=== PATIENT | female | born 1985 | race Caucasian/White ===

== ENCOUNTER 2020-07-03 12:24 | Emergency (ER) | payer OTHER ==
[~2020-07-03] VITALS: Ht 165.1 cm; Wt 111.0 kg
[2020-07-03 12:24] VITALS: BP 142/93
[2020-07-03] MEDS ORDERED: DEXAMETHASONE 4 MG TABLET PO ONE (12:45)
[2020-07-03] MEDS ORDERED: ONDANSETRON ODT 4 MG TAB.RAPDIS PO ONE ×3 (12:45→13:15)
[2020-07-03] MEDS ORDERED: diphenhydrAMINE 50 MG/ML VIAL IVP ONE (13:00)
[2020-07-03] MEDS ORDERED: DEXAMETHASONE SOD PHOS 10 MG/ML VIAL. IM ONE (13:00)
[2020-07-03] MEDS ORDERED: diphenhydrAMINE 50 MG/ML VIAL IM ONE (13:00)
[2020-07-03] MEDS ORDERED: DEXAMETHASONE SOD PHOS 10 MG/ML VIAL. IVP ONE (13:00)
[2020-07-03] MEDS ORDERED: IV NORMAL SALINE 1,000ML 1,000 ML IV ONE (13:00)
[2020-07-03] MEDS ORDERED: FAMOTIDINE 20 MG/2 ML VIAL IVP ONE (13:00)
[2020-07-03] MEDS ORDERED: DEXAMETHASONE SOD PHOS 10 MG/ML VIAL. IV ONE (13:00)
[2020-07-03] MEDS ORDERED: FAMOTIDINE 20 MG TABLET PO ONE (13:00)
[2020-07-03] MEDS ORDERED: EPIN0.3A3 IM (14:07)
[2020-07-03] MEDS ORDERED: DIPH25TA26 PO (14:07)
[2020-07-03] MEDS ORDERED: ONDA4TAB12 PO (14:07)
--- NOTE | 2020-07-03 14:07 | PHYS DOC ---
General Adult EDM: Chief Complaint: ALLERGIC REACTION HPI: HPI: 35-year-old female past medical history of hypertension, iron deficiency anemia and prediabetes, presents the ED from urgent care, with complaints of pruritic rash over her chest, back and all 4 extremities that started 30 minutes just prior to arrival. Patient states she was cleaning out cat cages when her sxs started-has been doing this "for years, I have a cat.". C/o cough with vomiting, states she feels faint. Reports her family members have a history of severe allergic reactions but she personally has never had similar rash, allergic reaction, anaphylaxis or angioedema. Reports her last rash was when she was a child and given penicillin. 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 No h/o asthma. H/o knee swelling after receiving a "cortisone" injection - no associated rash/angioedema/difficulties breathing. Denies any new foods/lotions/perfumes/detergents/medications. Review of Systems: Review of Systems: Constitutional: Denies fever or chills Eyes: Denies change in visual acuity HENT: Denies nasal congestion or sore throat or neck fullness or swelling /voice changes, drooling/difficulties controlling secretions Respiratory: Denies cough or shortness of breath or dyspnea Cardiovascular: Denies chest pain or edema GI: Denies abdominal pain, bloody stools or diarrhea : Denies dysuria Musculoskeletal: Denies back pain or joint pain Integument: Denies diaphoresis Neurologic: Denies headache, focal weakness or sensory changes Endocrine: Denies polyuria or polydipsia Lymphatic: Denies swollen glands Psychiatric: Denies depression or anxiety Current Medications: Current Meds: Current Medications Medications (Trade) Dose Ordered Sig/Champ Start Time Stop Time Status Last Admin Dose Admin Dexamethasone (Decadron) 10 mg 1X ONCE 07/03/20 12:45 07/03/20 12:55 DC Dexamethasone Sodium Phosphate (Decadron) 10 mg 1X ONCE 07/03/20 13:00 07/03/20 13:01 UNV Diphenhydramine HCl (Benadryl) 50 mg 1X ONCE 07/03/20 13:00 07/03/20 13:22 DC Famotidine (Pepcid Vial) 20 mg 1X ONCE 07/03/20 13:00 07/03/20 13:07 DC 07/03/20 13:17 20 MG Famotidine (Pepcid) 20 mg 1X ONCE 07/03/20 13:00 07/03/20 12:58 DC Ondansetron HCl (Zofran Odt) 4 mg 1X ONCE 07/03/20 13:15 07/03/20 13:22 DC 07/03/20 13:18 4 MG Sodium Chloride 1,000 ml @ 1,000 mls/hr 1X ONCE 07/03/20 13:00 07/03/20 13:59 DC 07/03/20 13:17 1,000 MLS/HR Allergies: Allergies: Allergies Coded Allergies Type Severity Reaction Last Updated Verified Penicillins Allergy Unknown 07/03/20 Yes cortisone Allergy Unknown 07/03/20 Yes Physical Exam: PE: Constitutional: Well developed, well nourished, no acute distress, non-toxic appearance. HENT: Normocephalic, atraumatic, Mallampati 1, oropharynx patent, clear speech, controlling secretions, Eyes: EOMI, conjunctiva normal, no discharge. Neck: Normal range of motion, supple, no neck stiffness Cardiovascular: S1/2 present, regular rhythm Lungs & Thorax: Speaking in full sentences, bilateral equal chest rise, no tachypnea or increased work of breathing, postussive vomiting witnessed, no tripod position, clear lungs bilaterally with no wheezing Abdomen: soft, no tenderness, Skin: Warm, dry, diffuses red wheels/urticaria over all 4 extremities/chest/abdomen/back-is itching (discouraged) Back: No tenderness, no CVA tenderness. [] Extremities: No tenderness, no cyanosis, no lower extremity edema Neurologic: Alert and oriented X 3, normal motor function, normal sensory function, no focal deficits noted. [] Psychologic: judgement normal, mood-is very anxious/hyperventilating and overwhelmed by current situation EKG: EKG: [] Radiology/Procedures: Radiology/Procedures: [] Heart Score: C/O Chest Pain: No Risk Factors: Risk Factors: DM, Current or recent (<one month) smoker, HTN, HLP, family history of CAD, obesity. Risk Scores: Score 0 - 3: 2.5% MACE over next 6 weeks - Discharge Home Score 4 - 6: 20.3% MACE over next 6 weeks - Admit for Clinical Observation Score 7 - 10: 72.7% MACE over next 6 weeks - Early Invasive Strategies Course & Med Decision Making: Course & Med Decision Making Pertinent Labs and Imaging studies reviewed. (See chart for details) Concern for allergic reaction with no angioedema, syncope or anaphylaxis. On reevaluation after steroids, Benadryl and Pepcid, patient sleeping comfortably with significant improvement of diffuse urticaria. Pt very appreciative. Posttussive emesis most likely related to patient's anxiety and is resolved. Will prescribe epipen. Has a ten day prednisone taper rx from urgent care. Will discharge home with strict ED return precautions were given for head and neck swelling, difficulties breathing controlling her secretions, worsening rash or syncope (educated on biphasic allergic reactions, EpiPen use and 911 call). Encouraged urgent outpatient follow-up with PMD and allergy and immunology clinic. Life-threatening processes were considered but are low suspicion at this time, given history, physical exam and ED workup. Pt was educated on all prescription medications and adverse effects. All patient's questions were answered and pt was stable at time of discharge. Life/limb-threatening differential includes but is not limited to, erythema multiforme, hill-diana syndrome, toxic epidermal necrolysis, staphylococcal scalded skin syndrome, necrotizing fasciitis/myositis/cellulitis, purpura fulminans, heparin or warfarin induced skin necrosis, angioedema, anaphylaxis drug rash, disseminated intravascular coagulation, disseminated gonococcal disease, vasculitis, septicemia, petechial disorder or coagulopathy, viral exanthem, Kawasaki's disease or life-threatening burn requiring burn center management or escharotomy. I spoken with the patient and her caregivers. I explained the patient's condition, diagnoses and treatment plan based on the information available to me at this time. I have answered the patient and her caregiver's questions and addressed any concerns. The patient and her caregivers have a good understanding of patient's diagnosis, condition and treatment plan as can be expected at this point. Vital signs have been stable. Patient's condition is stable and appropriate for discharge from the emergency department. Patient will pursue further outpatient evaluation with primary care physician or other designated or consulting physician as outlined in the discharge instructions. The patient and/or caregivers are agreeable to this plan of care and follow-up instructions have been explained in detail. The patient and/or caregivers have received these instructions in written form and have expressed a n understanding of the discharge instructions. The patient and/or caregivers are aware that any significant change of condition or worsening of symptoms should prompt immediate return to this or the closest emergency department or call to 911Kana Potter Disclaimer: Tariq Disclaimer: This electronic medical record was generated, in whole or in part, using a voice recognition dictation system. Departure Departure: Impression: Primary Impression: Acute allergic reaction Additional Impression: Post-tussive vomiting Disposition: 01 DC HOME SELF CARE/HOMELESS Condition: STABLE Referrals: PCP,UNKNOWN (PCP) FOLLOW UP WITH FAMILY MEDICINE: Complete [facility], [facility] [address] [address] [address], [facility] Instructions: Allergies, Generic, Allergy Skin Testing, Hives, Nausea and Vomiting Additional Instructions: [facility] Call for appointment [phone] [facility] on the [address], [address] (Address for directions and navigation systems: [address] [place] [address]) EMERGENCY DEPARTMENT GENERAL DISCHARGE INSTRUCTIONS Thank you for coming to [facility] (ED) today and trusting us with you care. We trust that you had a positivie experience in our Emergency Department. If you wish to speak to the department management, you may call the director at [phone]. YOUR FOLLOW UP INSTRUCTIONS ARE FOLLOWS: 1. Do you have a private Doctor? If you do not have a private doctor, please ask for a resource list of physicians or clinics that may be able to assist you with follow up care. 2. The Emergency Physician has interpreted your x-rays. The X-Ray specialist will also review them. If there is a change in the findings, you will be notified in 48 hours when at all possible. 3. A lab test or culture has been done, your results will be reviewed and you will be notified if you need a change in treatment. ADDITIONAL INSTRUCTIONS AND INFORMATION: 1. Your care today has been supervised by a physician who is specially trained in emergency care. Many problems require more than one evaluation for a complete diagnosis and treatment. We recommend that you schedule your follow up appointment as recommended to ensure complete treatment of you illness or injury. If you are unable to obtain follow up care and continue to have a problem, or if your condition worsens, we recommend that you return to the ED. 2. We are not able to safely determine your condition over the phone nor are we able to give sound medical advice over the phone. For these safety reasons, if you call for medical advice we will ask you to come to the ED for further evaluation. 3. If you have any questions regarding these discharge instructions please call the ED at [phone]. SAFETY INFORMATION: In the interest of safety, wellness, and injury prevention; we encourage you to wear your sealbelt, if you smoke; quite smoking, and we encourage family to use a protective helmet for bicycling and other sporting events that present an increased risk for head injury. IF YOUR SYMPTOMS WORSEN OR NEW SYMPTOMS DEVELOP, OR YOU HAVE CONCERNS ABOUT YOUR CONDITION; OR IF YOUR CONDITION WORSENS WHILE YOU ARE WAITING FOR YOUR FOLLOW UP APPOINTMENT; EITHER CONTACT YOUR PRIMARY CARE DOCTOR, THE PHYSICIAN WHOSE NAME AND NUMBER YOU WERE GIVEN, OR RETURN TO THE ED IMMEDIATELY. Scripts Diphenhydramine Hcl (DIPHENHYDRAMINE HCL) 25 Mg Tablet 1 TAB PO QID PRN for ITCHING MDD 200 mg for 5 Days, #20 TAB 0 Refills Prov: GEM LEVI DO 07/03/20 Epinephrine (Epipen) 0.3 Mg/0.3 Ml Auto.injct 0.3 MG IM UD for breathing problems, #1 SYR 1 Refill Prov: GEM LEVI DO 07/03/20 Ondansetron (ONDANSETRON ODT) 4 Mg Tab.rapdis 4 MG PO Q6HRS for Nausea/Vomiting, #15 TAB Prov: GEM LEVI DO 07/03/20 GEM LEVI DO Jul 03, 2020 14:07
== END 2020-07-03 14:15 | disposition home or self-care (01) ==
LOC: ER 12:24
DX: T78.49XA Other allergy, initial encounter (principal); R21 Rash and other nonspecific skin eruption; R05 Cough; R11.10 Vomiting, unspecified; I10 Essential (primary) hypertension; Z88.0 Allergy status to penicillin; Z88.8 Allergy status to other drugs, medicaments and biological substances; Y92.89 Other specified places as the place of occurrence of the external cause
CPT/HCPCS: 96361; 96374; 96375; 99284; J1100; J3490; J7030; Q0162